=== PATIENT | male | born 1960 | race Caucasian/White ===

== ENCOUNTER 2025-03-29 13:00 | Outpatient (RCR) | payer OTHER, SELFPAY ==
--- NOTE | 2024-11-25 14:01 | ONC.NURNOTE ---
Called pt with update re: PA process for degarelix and fulvestrant. Pt verbalized understanding. Will call pt to schedule when PA done.
--- NOTE | 2024-12-01 10:33 | URNOTE ---
Per [facility], prior auth is not required for Degarelix([id number]) and Fulvesdtrant ([id number]).
--- NOTE | 2024-12-01 11:09 | ONC.NURNOTE ---
Diagnosis: RIGHT Male Breast Cancer
[2024-12-06 08:57] VITALS: BP 160/87; PULSE 92; RESP 16; TEMP 36.4; O2SAT 97
[2024-12-06 09:30] VITALS: BP 134/78; PULSE 75
[2024-12-06] MEDS: DEGARELIX ACETATE 80 MG INJ SUBCUT (09:34)
[2024-12-06] MEDS: FULVESTRANT 500MG KIT 500 MG IM (09:35)
[2025-01-03 09:17] LABS: Hematocrit 36.1 % (37.0-53.0); Hemoglobin* 12.0 gm/dL (13.5-17.5); Immature Granulocytes Abs Auto 0.00 K/uL (0.00-0.30); Immature Granulocytes Pct Auto 0.0 %; Mean Corpuscular HGB Conc 33 gm/dL (32-36); Mean Corpuscular Hemoglobin 33 pg (26-34); Mean Corpuscular Volume 100 fL (80-100); RDW Coefficient of Variation % 12.8 % (11.5-15.5); Red Blood Count 3.61 m/uL (4.30-5.90); White Blood Count* 3.83 K/uL (4.50-11.00)
[2025-01-03 09:30] LABS: Albumin* 4.3 g/dL (3.3-5.0); Chloride* 102 mmol/L (96-114)
[2025-01-03 09:31] LABS: Potassium* 3.7 mmol/L (3.6-5.1); Sodium* 138 mmol/L (135-149)
[2025-01-03 09:33] LABS: Anion Gap 10 mEq/L (7-15); Aspartate Amino Transferase* 23 U/L (12-35); Bilirubin Total* 0.5 mg/dL (0.1-1.5); Blood Urea Nitrogen* 19 mg/dL (7-30); Carbon Dioxide* 26 mmol/L (20-32); Creatinine* 1.0 mg/dL (0.5-1.5); Est. Creatinine Clearance* 82.12; Estimated Glomerular Filt Rate 83 ml/min
[2025-01-03 09:34] LABS: Alanine Aminotransferase* 21 U/L (4-50); Alkaline Phosphatase* 59 U/L (40-150); Calcium* 8.8 mg/dL (8.4-10.6); Glucose* 146 mg/dL (60-115); Total Protein* 7.1 g/dL (6.0-8.3)
[2025-01-03 09:38] LABS: Lymphocytes Absolute Auto 1.60 K/uL (0.90-2.90); Slide Review Reflex No
[2025-01-03] MEDS: DEGARELIX ACETATE 80 MG INJ SUBCUT (11:34)
[2025-01-03] MEDS: FULVESTRANT 500MG KIT 500 MG IM (11:42)
--- NOTE | 2025-01-31 14:32 | ONC.NURNOTE ---
Called pt to check in after his visit with [facility]. Vernon is having a CT simulation today and will plan to start radiation on Thursday. He will get 8 days of treatment. Vernon got his injections in [place] today because he was there for the radiation appointment. He will resume his injections in [place] in February on 02/28/2025. Support offered.
[2025-02-28 09:11] VITALS: BP 143/80; PULSE 77; RESP 18; TEMP 36.1; O2SAT 97
[2025-02-28 09:13] LABS: Hematocrit 35.0 % (37.0-53.0); Hemoglobin* 11.8 gm/dL (13.5-17.5); Immature Granulocytes Pct Auto 0.3 %; Mean Corpuscular HGB Conc 34 gm/dL (32-36); Mean Corpuscular Hemoglobin 34 pg (26-34); Mean Corpuscular Volume 100 fL (80-100); RDW Coefficient of Variation % 13.5 % (11.5-15.5); Red Blood Count 3.50 m/uL (4.30-5.90); White Blood Count* 3.34 K/uL (4.50-11.00)
[2025-02-28 09:21] LABS: Immature Granulocytes Abs Auto 0.00 K/uL (0.00-0.30); Lymphocytes Absolute Auto 1.00 K/uL (0.90-2.90)
[2025-02-28 09:22] LABS: Slide Review Reflex No
[2025-02-28 09:24] LABS: Albumin* 4.2 g/dL (3.3-5.0); Chloride* 104 mmol/L (96-114); Potassium* 3.7 mmol/L (3.6-5.1); Sodium* 140 mmol/L (135-149)
[2025-02-28 09:27] LABS: Alanine Aminotransferase* 22 U/L (4-50); Alkaline Phosphatase* 52 U/L (40-150); Anion Gap 8 mEq/L (7-15); Aspartate Amino Transferase* 32 U/L (12-35); Bilirubin Total* 0.5 mg/dL (0.1-1.5); Blood Urea Nitrogen* 23 mg/dL (7-30); Calcium* 9.2 mg/dL (8.4-10.6); Carbon Dioxide* 28 mmol/L (20-32); Creatinine* 1.1 mg/dL (0.5-1.5); Est. Creatinine Clearance* 72.51; Estimated Glomerular Filt Rate 74 ml/min; Glucose* 107 mg/dL (60-115); Total Protein* 7.2 g/dL (6.0-8.3)
[2025-02-28] MEDS: FULVESTRANT 500MG KIT 500 MG IM (10:16)
[2025-03-29 13:21] VITALS: BP 122/81; PULSE 93; TEMP 36.2; O2SAT 97
[2025-03-29 13:22] LABS: Hematocrit 36.9 % (37.0-53.0); Hemoglobin* 12.5 gm/dL (13.5-17.5); Immature Granulocytes Pct Auto 0.2 %; Mean Corpuscular HGB Conc 34 gm/dL (32-36); Mean Corpuscular Hemoglobin 34 pg (26-34); Mean Corpuscular Volume 101 fL (80-100); RDW Coefficient of Variation % 13.4 % (11.5-15.5); Red Blood Count 3.65 m/uL (4.30-5.90); White Blood Count* 4.39 K/uL (4.50-11.00)
[2025-03-29 13:37] LABS: Albumin* 4.4 g/dL (3.3-5.0); Chloride* 107 mmol/L (96-114); Potassium* 3.9 mmol/L (3.6-5.1); Sodium* 141 mmol/L (135-149)
[2025-03-29 13:40] LABS: Alanine Aminotransferase* 23 U/L (4-50); Alkaline Phosphatase* 67 U/L (40-150); Anion Gap 9 mEq/L (7-15); Aspartate Amino Transferase* 31 U/L (12-35); Bilirubin Total* 0.6 mg/dL (0.1-1.5); Blood Urea Nitrogen* 19 mg/dL (7-30); Calcium* 9.2 mg/dL (8.4-10.6); Carbon Dioxide* 25 mmol/L (20-32); Creatinine* 1.2 mg/dL (0.5-1.5); Est. Creatinine Clearance* 66.46; Estimated Glomerular Filt Rate 67 ml/min; Glucose* 134 mg/dL (60-115); Total Protein* 7.5 g/dL (6.0-8.3)
[2025-03-29 13:48] LABS: Immature Granulocytes Abs Auto 0.00 K/uL (0.00-0.30); Lymphocytes Absolute Auto 1.40 K/uL (0.90-2.90); Slide Review Reflex No
[2025-03-29] MEDS: FULVESTRANT 500MG KIT 500 MG IM (13:48)
== END 2025-06-04 23:59 | disposition home or self-care (01) ==
LOC: CCIC 13:00
PROVIDERS: Clinical Nurse Specialist; Visit Provider Internal Medicine Hematology & Oncology
DX: C50.921 Malignant neoplasm of unspecified site of right male breast (principal); Z17.0 Estrogen receptor positive status [ER+]
CPT/HCPCS: 36415; 80053; 85025; 96402; 99202; 99205; J9155; J9395